=== PATIENT | male | born 1975 | race Caucasian/White ===

== ENCOUNTER 2020-11-10 09:23 | Outpatient (CLI) | payer MEDICAID ==
[2020-11-10 14:30] LABS: BASOPHILS # (AUTO) 0.1 10^3/uL (0.0-0.1); BASOPHILS % (AUTO) 0.8 %; EOSINOPHILS # (AUTO) 0.2 10^3/uL (0.0-0.7); EOSINOPHILS % (AUTO) 2.9 %; HGB - HEMOGLOBIN 16.3 g/dL (14.0-18.0); LYMPHOCYTES % (AUTO) 28.6 %; MEAN CORPUSCULAR HEMOGLOBIN 29.2 pg (27.0-31.0); MEAN CORPUSCULAR HGB CONC 33.6 g/dL (32.0-36.0); MEAN CORPUSCULAR VOLUME 86.8 fL (80.0-94.0); MEAN PLATELET VOLUME 9.7 fL (7.4-11.4); MONOCYTES # (AUTO) 0.6 10^3/uL (0.0-1.0); MONOCYTES % (AUTO) 8.6 %; NEUTROPHILS # (AUTO) 4.2 10^3/uL (1.5-6.6); NEUTROPHILS % (AUTO) 58.8 %; PLT - PLATELET COUNT 340 10^3/uL (130-450); RED BLOOD COUNT 5.59 10^6/uL (4.70-6.10); RED CELL DISTRIBUTION WIDTH 12.3 % (12.0-15.0); WHITE BLOOD COUNT 7.1 x10^3/uL (4.8-10.8)
[2020-11-10 15:07] LABS: ALBUMIN 4.7 g/dL (3.2-5.5); ALBUMIN/GLOBULIN RATIO 1.5 (1.0-2.2); ALKALINE PHOSPHATASE 72 IU/L (42-121); ALT ALANINE AMINOTRANSFERASE 27 IU/L (10-60); AST ASPARTATE AMINOTRANSFERASE 19 IU/L (10-42); BILIRUBIN,TOTAL 0.8 mg/dL (0.2-1.0); BUN - BLOOD UREA NITROGEN 15 mg/dL (6-20); CALCIUM 9.5 mg/dL (8.5-10.3); CARBON DIOXIDE - CO2 25 mmol/L (21-32); CHLORIDE 100 mmol/L (101-111); CHOL/HDL RATIO 5.7 (<5.0); CHOLESTEROL 256 mg/dL; CREATININE 0.7 mg/dL (0.6-1.2); GLUCOSE 112 mg/dL (70-100); HDL CHOLESTEROL 45 mg/dL; SODIUM 136 mmol/L (135-145); TOTAL PROTEIN 7.8 g/dL (6.7-8.2)
[2020-11-10 15:28] LABS: LDL CHOLESTEROL,CALCULATED 177 mg/dL; LDL/HDL RATIO 3.9 (<3.6); VLDL CHOLESTEROL 34 mg/dL
== END 2020-11-10 09:24 | disposition home or self-care (01) ==
LOC: LAB.S 09:23
PROVIDERS: ATTEND Physician Assistant
DX: Z00.00 Encounter for general adult medical examination without abnormal findings (principal); F19.10 Other psychoactive substance abuse, uncomplicated; E29.1 Testicular hypofunction; R89.1 Abnormal level of hormones in specimens from other organs, systems and tissues; F33.9 Major depressive disorder, recurrent, unspecified; G47.9 Sleep disorder, unspecified
CPT/HCPCS: 36415; 80050; 80061; 81599; 82306; 83721; 84402; 84403

== ENCOUNTER 2020-12-18 08:24 | Outpatient (CLI) | payer MEDICAID | END 2020-12-18 08:25 | disposition home or self-care (01) | LOC: LAB.S 08:24 | PROVIDERS: ATTEND Physician Assistant | DX: R53.83 Other fatigue (principal); E29.1 Testicular hypofunction; F33.9 Major depressive disorder, recurrent, unspecified; G47.9 Sleep disorder, unspecified | CPT/HCPCS: 36415; 81599; 84402; 84403 ==

== ENCOUNTER 2021-07-08 17:18 | Emergency (ER) | payer MEDICAID ==
[2021-07-08] MEDS ORDERED: ALBUTEROL NEB 2.5 MG/3 ML INH STA (18:32)
--- NOTE | 2021-07-08 20:05 | ED Physician Documentation ---
History of Present Illness - Stated complaint Stated Complaint: INHALATIONS OF CHEMICALS - Chief complaint Chief Complaint: Resp - History obtained from History obtained from: Patient - History of Present Illness Timing: Yesterday Pain level max: 4 Pain level now: 4 - Additonal information Additional information: Patient is a 46-year-old male who presents with cough and chest tightness after mixing bleach and ammonia in a bathroom yesterday. He was in the bathroom with the gases for about 30 minutes at a time. Did this 2-3 times. He states he had coughing last night and has continued today. No fevers. No chills. No history of respiratory issues. Worse with a deep breath, nothing makes it better Review of Systems Constitutional: denies: Fever, Chills Nose: denies: Rhinorrhea / runny nose, Congestion Throat: denies: Sore throat Cardiac: denies: Chest pain / pressure Respiratory: reports: Dyspnea, Cough, Wheezing GI: denies: Vomiting, Diarrhea Skin: denies: Rash Musculoskeletal: denies: Neck pain, Back pain Neurologic: denies: Headache PD PAST MEDICAL HISTORY - Past Medical History Past Medical History: Yes Cardiovascular: High cholesterol Respiratory: Other Neuro: Headaches Endocrine/Autoimmune: None GI: None : None HEENT: None Psych: Anxiety Musculoskeletal: Chronic back pain Derm: None - Past Surgical History Past Surgical History: Yes Ortho: Spine surgery - Present Medications Home Medications: Ambulatory Orders Medication Instructions Recorded Confirmed Albuterol Sulf [Ventolin Hfa 1 - 2 puffs INH Q4HR PRN 07/08/21 07/08/21 Inhaler] Albuterol Sulf [Ventolin Hfa 1 - 2 puffs INH Q4HR PRN #1 inhaler 07/08/21 Inhaler] - Allergies Allergies/Adverse Reactions: Allergies Allergy/AdvReac Type Severity Reaction Status Date / Time No Known Drug Allergies Allergy Verified 07/08/21 17:27 - Social History Does the pt smoke?: Yes Smoking Status: Current some day smoker Does the pt drink ETOH?: No Does the pt have substance abuse?: No - Immunizations Immunizations are current?: Yes PD ED PE NORMAL - Vitals Vital signs reviewed: Yes - General General: Alert and oriented X 3, No acute distress - HEENT HEENT: Moist mucous membranes - Neck Neck: Supple, no meningeal sign - Cardiac Cardiac: RRR - Respiratory Respiratory: No respiratory distress, Other (mild wheezing B, no retractions or resp distress.) - Abdomen Abdomen: Soft, Non tender, Non distended - Derm Derm: Warm and dry - Extremities Extremities: No edema - Neuro Neuro: Alert and oriented X 3 Results - Vitals Vitals: Vital Signs - 24 hr 07/08/21 07/08/21 07/08/21 17:23 17:59 19:03 Temperature 36.1 C L 36.2 C L Heart Rate 81 78 66 Respiratory 16 18 20 Rate Blood Pressure 150/85 H 156/92 H O2 Saturation 97 97 07/08/21 20:24 Temperature 36.6 C Heart Rate 69 Respiratory 16 Rate Blood Pressure 137/75 H O2 Saturation 97 Oxygen O2 Source Room air PD MEDICAL DECISION MAKING - ED course Complexity details: re-evaluated patient, considered differential, d/w patient ED course: Patient with what appears to be a chemical pneumonitis. Feels better after albuterol. No hypoxia. No respiratory distress. Will prescribe inhaler for home. No indication for chest x-ray at this time. No hypoxia. We will continue supportive care and have him follow-up with his doctor. Patient counseled regarding signs and symptoms for which I believe and urgent re- evaluation would be necessary. Patient with good understanding of and agreement to plan and is comfortable going home at this time This document was made in part using voice recognition software. While efforts are made to proofread this document, sound alike and grammatical errors may occur. Departure - Departure Disposition: 01 Home, Self Care Clinical Impression: Exposure to chemical inhalation Condition: Good Instructions: ED Inhalation Chemical Follow-Up: your,doctor in 3 days for recheck [Other] Prescriptions: Albuterol Sulf [Ventolin Hfa Inhaler] 1 - 2 puffs INH Q4HR PRN #1 inhaler PRN Reason: Shortness Of Air/Wheezing Comments: Use the inhaler as needed. This should improve over the next few hours. Discharge Date/Time: 07/08/21 20:24
[2021-07-08 20:25] VITALS: BP 137/75
== END 2021-07-08 20:24 | disposition home or self-care (01) ==
LOC: ED 17:18
DX: T54.91XA Toxic effect of unspecified corrosive substance, accidental (unintentional), initial encounter (principal); F17.200 Nicotine dependence, unspecified, uncomplicated
CPT/HCPCS: 94640; 94664; 99283; 99284